=== PATIENT | female | born 2000 | race Caucasian/White ===

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

== ENCOUNTER 2024-04-23 09:56 | Emergency (ER) | payer OTHER ==
[2024-04-23 11:14] LABS: BASOPHILS PERCENT AUTO 0.1 % (0.0-1.0); EOSINOPHILS PERCENT AUTO 1.2 % (1.0-3.0); HEMATOCRIT 37.6 % (37.0-47.0); LYMPHOCYTES PERCENT AUTO 19.1 % (20.5-50.1); MEAN CORPUSCULAR HGB CONC 34.6 g/dL (33.0-35.0); MEAN CORPUSCULAR VOLUME 83.7 fL (80-100); MONOCYTES PERCENT AUTO 10.4 % (2-8); NEUTROPHILS PERCENT AUTO 69.2 % (42.2-75.2); PLATELET COUNT,PLT 223 10^3/uL (150-450); RED BLOOD CELL COUNT 4.49 10^6/uL (4.2-5.4); WHITE BLOOD CELL COUNT,WBC 8.2 10^3/uL (5.0-10.0)
[2024-04-23 11:32] LABS: ANION GAP 13.8 mEq/L (7-13); BLOOD UREA NITROGEN,BUN 6 mg/dL (7-18); CALCIUM 9.2 mg/dL (8.5-10.1); CARBON DIOXIDE,CO2 27 mmol/L (21-32); CHLORIDE,CL 104 mmol/L (98-107); CREATININE 0.73 mg/dL (0.55-1.02); GLUCOSE RANDOM 78 mg/dL (70-99); POTASSIUM,K 3.8 mmol/L (3.5-5.1); SODIUM,NA 141 mmol/L (136-145)
[2024-04-23 11:33] LABS: ESTIMATED GFR 118 mL/min (>=60)
[2024-04-23] MEDS: Rho(D) Immune Globulin 300 MCG/2 ML Syringe IM STA (13:44)
[2024-04-23 14:57] VITALS: BP 129/87; PULSE 87
== END 2024-04-23 14:02 | disposition home or self-care (01) ==
LOC: DL.ED 09:56
DX: O20.0 Threatened abortion (principal); Z3A.11 11 weeks gestation of pregnancy
CPT/HCPCS: 36415; 76802; 80048; 84702; 85025; 90384; 96372; 99284; J2791

== ENCOUNTER 2024-10-27 02:29 | Inpatient (IN) | payer BC ==
[2024-10-27] MEDS ORDERED: Sodium Chloride 0.9% 10 ML Syringe FLUSH PRN (07:13)
[2024-10-27] MEDS ORDERED: Carboprost Tromethamine 250 MCG/1 ML Amp IM PRN (07:13)
[2024-10-27] MEDS ORDERED: Ondansetron 4 MG/2 ML SDV IVPUSH PRN (07:13)
[2024-10-27] MEDS ORDERED: Oxytocin/Lactated Ringers 30 UNIT/500 ML BAG IV SCH (07:15)
[2024-10-27 08:12] LABS: PLATELET COUNT,PLT 211.0 10^3/uL (150-450); RED BLOOD CELL COUNT 4.49 10^6/uL (4.2-5.4); WHITE BLOOD CELL COUNT,WBC 7.6 10^3/uL (5.0-10.0)
[2024-10-27] MEDS: Penicillin G Potassium 5 MILLUNITS in Sodium Chloride 0.9% 100 ML IV ONE (08:35)
[2024-10-27] MEDS: Misoprostol 50 MCG (1/2 of 100 MCG) Tab VAG SCH (09:05)
[2024-10-27] MEDS: Penicillin G Potassium 3 MILLUNITS in Sodium Chloride 0.9% 100 ML IV SCH ×2 (12:56→17:09)
[2024-10-27] MEDS: Misoprostol 25 MCG (1/4 of 100 MCG) Tab VAG PRN (13:47)
[2024-10-27] MEDS: fentaNYL 100 MCG/2 ML SDV IVPUSH ONE (22:01)
[2024-10-27] MEDS: Lactated Ringers 1,000 ML IV ONE (22:35)
[2024-10-28] MEDS: Lactated Ringers 1,000 ML IV SCH (00:35)
[2024-10-28] MEDS: Oxytocin/Normal Saline 30 UNIT/500 ML BAG IV SCH (02:30)
[2024-10-28] MEDS ORDERED: Oxytocin/Normal Saline 30 UNIT/500 ML BAG ONE (06:22)
[2024-10-28] MEDS ORDERED: fentaNYL 100 MCG/2 ML SDV IVPUSH PRN (08:07)
[2024-10-28] MEDS ORDERED: Ondansetron 4 MG/2 ML SDV ONE (08:17)
[2024-10-28] MEDS ORDERED: Dexamethasone 4 MG/ML SDV ONE (08:18)
[2024-10-28] MEDS ORDERED: ePHEDrine 50 MG/ML SDV IVPUSH PRN (11:27)
[2024-10-28] MEDS ORDERED: diphenhydrAMINE 50 MG/ML SDV IVPUSH PRN (11:27)
[2024-10-28] MEDS ORDERED: Ondansetron 4 MG/2 ML SDV IVPUSH PRN (11:27)
[2024-10-28] MEDS ORDERED: Lactated Ringers 1,000 ML IV SCH (11:30)
[2024-10-28] MEDS ORDERED: Oxytocin/Normal Saline 30 UNIT/500 ML BAG IV SCH (11:30)
[2024-10-28] MEDS: Ketorolac 30 MG/ML SDV IVPUSH SCH ×2 (12:42→15:20)
[2024-10-28] MEDS: Ketorolac 30 MG/ML SDV IM ONE (20:34)
[2024-10-29 06:47] LABS: PLATELET COUNT,PLT 180.0 10^3/uL (150-450); RED BLOOD CELL COUNT 3.47 10^6/uL (4.2-5.4); WHITE BLOOD CELL COUNT,WBC 12.8 10^3/uL (5.0-10.0)
[2024-10-29] MEDS: Acetaminophen/oxyCODONE 325-5 MG Tab PO PRN ×2 (09:25→13:59)
[2024-10-29] MEDS: Prenatal Multivitamin with Calcium/Folic Acid/Iron Tab PO SCH (09:25)
[2024-10-29] MEDS: Measles, Mumps & Rubella Vaccine 0.5 ML SDV SUBCUT ONE (16:22)
[2024-10-30 12:01] VITALS: BP 139/66; PULSE 65
== END 2024-10-30 10:10 | disposition home or self-care (01) | DRG 540 ==
LOC: DL.OB 07:51 → OBSVTOIN 10-28 07:06 → DL.MS 10-29 11:11
PROVIDERS: ADMIT Family Medicine; ATTEND Family Medicine
PROC: 10907ZC Drainage of Amniotic Fluid, Therapeutic from Products of Conception, Via Natural or Artificial Opening (ICD-10-PCS; 2024-10-28)
PROC: 3E0DXGC Introduction of Other Therapeutic Substance into Mouth and Pharynx, External Approach (ICD-10-PCS; 2024-10-28)
PROC: 4A1HXCZ Monitoring of Products of Conception, Cardiac Rate, External Approach (ICD-10-PCS; 2024-10-28)
PROC: 3E0334Z Introduction of Serum, Toxoid and Vaccine into Peripheral Vein, Percutaneous Approach (ICD-10-PCS; 2024-10-28)
PROC: 10D00Z1 Extraction of Products of Conception, Low, Open Approach (ICD-10-PCS; principal; 2024-10-28 07:00)
DX: O13.4 Gestational [pregnancy-induced] hypertension without significant proteinuria, complicating childbirth (principal); Z3A.37 37 weeks gestation of pregnancy; Z37.0 Single live birth; O99.824 Streptococcus B carrier state complicating childbirth; O26.893 Other specified pregnancy related conditions, third trimester; O76 Abnormality in fetal heart rate and rhythm complicating labor and delivery; O61.0 Failed medical induction of labor; D62 Acute posthemorrhagic anemia; O99.03 Anemia complicating the puerperium; O69.81X0 Labor and delivery complicated by cord around neck, without compression, not applicable or unspecified; O75.2 Pyrexia during labor, not elsewhere classified; O62.1 Secondary uterine inertia; Z67.41 Type O blood, Rh negative
CPT/HCPCS: 36415; 36430; 51702; 59025; 85027; 85461; 86850; 86870; 86900; 86901; 90471; 90707; 94010; A9270-GY; J1885; J2540; J2590; J2791; J3010; J7120